=== PATIENT | female | born 2005 | race Caucasian/White ===

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

== ENCOUNTER → 2024-07-21 | Outpatient (REF) | payer OTHER, BC ==
[2024-07-21 18:47] LABS: PERCENT SATURATION 18.8 % (13.2-45.0)
[2024-07-21 18:49] LABS: FERRITIN 19.2 NG/ML (7.3-270.7)
== END ==
LOC: M LAB REF 16:43
PROVIDERS: ATTEND Internal Medicine
DX: D64.9 Anemia, unspecified (principal)

== ENCOUNTER → 2024-10-28 | Outpatient (REF) | payer OTHER ==
[2024-10-28 18:28] LABS: PERCENT SATURATION 23.1 % (13.2-45.0)
[2024-10-28 18:30] LABS: FERRITIN 8.7 NG/ML (7.3-270.7)
== END ==
LOC: M LAB REF 17:49
PROVIDERS: ATTEND Internal Medicine
DX: D50.9 Iron deficiency anemia, unspecified (principal)

== ENCOUNTER → 2025-06-25 | Outpatient (REF) | payer OTHER ==
[2025-06-25 14:04] LABS: Trichomonas vaginalis (AMP) NOT DETECTED (NEGATIVE)
[2025-06-25 14:28] LABS: GC DNA AMPLIFICATION NEGATIVE (NEGATIVE)
== END ==
LOC: M LAB REF 12:09
DX: R30.0 Dysuria (principal); Z11.3 Encounter for screening for infections with a predominantly sexual mode of transmission; N39.0 Urinary tract infection, site not specified

== ENCOUNTER → 2025-07-23 | Outpatient (REF) | payer OTHER ==
[2025-07-23 18:51] LABS: IRON (FE) 66.0 UG/DL (50-170); PERCENT SATURATION 16.2 % (13.2-45.0)
== END ==
LOC: M LAB REF 17:34
PROVIDERS: ATTEND Internal Medicine
DX: D50.9 Iron deficiency anemia, unspecified (principal)